=== PATIENT | male | born 1990 | race Caucasian/White ===

== ENCOUNTER 2019-02-27 09:39 | Emergency (ER) | payer OTHER ==
[~2019-02-27] VITALS: Ht 162.6 cm; Wt 65.8 kg
[2019-02-27 10:02] VITALS: BP 144/86
--- NOTE | 2019-02-27 10:10 | NUR ---
SEEN AND EXAMINED BY
--- NOTE | 2019-02-27 10:54 | NUR ---
Patient discharged in custody in stable condition. Written and verbal after care instructions given. Patient verbalizes understanding of instruction.
== END 2019-02-27 10:58 ==
LOC: ER 09:41
DX: K02.9 Dental caries, unspecified (principal)
CPT/HCPCS: 71045-TC